=== PATIENT | female | born 2000 | race Caucasian/White ===

== ENCOUNTER 2022-10-20 10:24 | Emergency (ER) | payer OTHER, SELFPAY ==
[2022-10-20] VITALS (8 sets, daily range): BP systolic 125–141; BP diastolic 65–81; PULSE 89–100; RESP 13–24; TEMP 36.2; O2SAT 98–100; BMI 35.5
--- NOTE | 2022-10-20 10:42 | DI.CT.S_ITS ---
PROCEDURE: CT ANGIO CHEST PE PROTOCOL INDICATIONS: Chest pain/tachycardia TECHNIQUE: After the administration of intravenous contrast, 2 mm thick sections acquired from the pulmonary apices to the posterior costophrenic angles. 3-dimensional maximum intensity projection (MIP) coronal and sagittal reformats were then acquired through the thorax. For radiation dose reduction, the following was used: automated exposure control, adjustment of mA and/or kV according to patient size. COMPARISON: [facility], CT, CT ANGIO CHEST PE, 12/29/2018, 15:16. FINDINGS: Image quality: Excellent. Pulmonary arteries: Pulmonary arteries are normal in size, and demonstrate no intraluminal filling defects to suggest central pulmonary embolism. Lungs and pleura: Lungs are clear. No pleural effusions or pneumothorax. Central and peripheral airways are patent. Mediastinum: Heart size is normal, without pericardial effusion. No mediastinal or hilar adenopathy. Thoracic aorta is normal in caliber and enhancement. Esophagus is normal in caliber, without hiatal hernia. Bones and chest wall: No suspicious bony lesions. Ribs and thoracic spine appear intact throughout. Thyroid gland is within normal limits. No axillary or supraclavicular adenopathy. Abdomen: Visualized upper abdominal solid organs appear normal in the early arterial phase of enhancement. IMPRESSION: 1. No evidence of pulmonary emboli. No thoracic aortic aneurysm or gross dissection. 2. Bilateral lungs are clear. 3. No evidence of mediastinal or hilar lymphadenopathy. Dictated by: Hong Montero M.D. on 10/20/2022 at 11:38 Approved by: Hong Montero M.D. on 10/20/2022 at 11:40
--- NOTE | 2022-10-20 10:44 | DI.US.S_ITS ---
PROCEDURE: US PERIPH VENOUS LOW EXTREM RT INDICATIONS: CALF PAIN AND SWELLING TECHNIQUE: Real-time imaging, as well as color and pulse Doppler interrogation, were performed of the lower extremity deep veins from the inguinal ligament to the popliteal fossa. COMPARISON: None. FINDINGS: The common femoral, femoral and popliteal veins are normally compressible, and free of intraluminal thrombus. Color and pulse Doppler demonstrate normal phasic intraluminal flow. There is normal augmentation response to distal compression maneuver. IMPRESSION: No evidence of DVT in visualized right lower extremity veins. Dictated by: Hong Montero M.D. on 10/20/2022 at 11:37 Approved by: Hong Montero M.D. on 10/20/2022 at 11:38
--- NOTE | 2022-10-20 10:44 | ED_ITS ---
HPI - Chest Pain General Chief Complaint: Chest Pain Stated Complaint: chest pain Time Seen by Provider: 10/20/22 10:35 Source: patient Mode of arrival: Ambulatory Limitations: no limitations History of Present Illness HPI narrative: Patient here with a friend. Sent here from the local walk-in clinic for evaluation of chest pain. Patient states has had substernal chest discomfort since last Wednesday. Has had right arm discomfort as well. No dyspnea or palpitations. Has had off and on right calf discomfort. Walk-in clinic states right calf is slightly bigger than the left. Patient denies any history of he art attack strokes or diabetes or blood clots in legs or lungs. She did travel to [facility] last months. She is on control implant. She does have a sister that has had a stroke and blood clot in the lungs. Patient in no distress. Related Data Allergies Allergy/AdvReac Type Severity Reaction Status Date / Time azithromycin Allergy Verified 10/20/22 10:29 Review of Systems Review of Systems Narrative: GENERAL: negative chills, fatigue, malaise, fever, sweats. HEENT: negative sinus pain, ear pain, sore throat RESPIRATORY: negative dyspnea, cough CARDIOVASCULAR: Positive chest pain, negative palpitations GASTROINTESTINAL: negative nausea, vomiting, abdominal pain : negative dysuria, frequency, hematuria MUSCULOSKELETAL: negative muscle or bony pain, positive calf pain SKIN: negative rash, skin lesions NEUROLOGIC: negative weakness, numbness ROS Unobtainable: All systems reviewed & are unremarkable except as noted in HPI and below Patient History Social History Smoking Status: Unknown if ever smoked Smoking Status: Unknown if ever smoked alcohol intake frequency: holidays/special occasions only Substance Use Type: does not use Exam Narrative Exam Narrative: GENERAL: in no distress, not toxic not dyspneic HEAD: Normocephalic. EYES: Pupils equal round ENT: Mucous membranes moist. Symmetric bilateral pharynx. No erythema no edema no exudates no midline shift of the uvula. No uvula swelling. No trismus no malocclusion no drooling no tongue elevation NECK: Trachea midline. CARDIOVASCULAR: Regular rate and rhythm without murmurs RESPIRATORY: Clear to auscultation. Breath sounds equal bilaterally. No wheezes, rales, or rhonchi. GASTROINTESTINAL: Abdomen soft, non-tender EXTREMITIES: No gross deformities. Examination bilateral lower extremities. Calves are nontender. They are grossly symmetric. Negative Homans test negative Lemon test. Strong bilateral pedal pulses with brisk cap refills bilaterally. Feet are warm soft and pink. No palpable cords on the right or left calves. NEURO: AOx4. SKIN: Warm and dry PSYCH: Not anxious, is cooperative Initial Vital Signs Initial Vital Signs: Vital Signs Temperature 97.2 F L 10/20/22 10:25 Pulse Rate 100 H 10/20/22 10:25 Respiratory Rate 15 10/20/22 10:25 Blood Pressure 136/79 10/20/22 10:25 Pulse Oximetry 98 10/20/22 10:25 Oxygen Delivery Method Room Air 10/20/22 10:25 Scores HEART Score Heart Score history: Slightly Suspicious Heart Score EKG: Normal Heart Score Age: < 45 years old Heart Score risk factors: No known risk factors Heart Score troponin: < or = to normal limit Heart Score Total: 0 Course Orders Ordered: Discontinued Medications Sodium Chloride (Normal Saline 0.9%) 500 mls @ 1,000 mls/hr IV BOLUS ONE Stop: 10/20/22 11:12 Last Infusion: 10/20/22 11:52 Dose: 0 mls/hr Documented By: Admin: 10/20/22 10:48 Dose: 1,000 mls/hr Documented By: EDEN Ketorolac Tromethamine (Ketorolac 30 Mg/Ml Vial) 15 mg IV NOW ONE Stop: 10/20/22 12:44 Last Admin: 10/20/22 12:51 Dose: 15 mg Documented By: JAYLAN Vital Signs Vital signs: Vital Signs - 8 hr 10/20/22 10:25 10/20/22 10:33 10/20/22 10:35 Temperature 97.2 F L Pulse Rate 100 H 95 H Respiratory Rate 15 Blood Pressure 136/79 125/81 Pulse Oximetry 98 Oxygen Delivery Method Room Air 10/20/22 10:35 10/20/22 11:00 10/20/22 11:55 Temperature Pulse Rate 98 H 94 H 94 H Respiratory Rate 13 24 14 Blood Pressure Pulse Oximetry 100 99 Oxygen Delivery Method 10/20/22 11:56 10/20/22 11:56 10/20/22 12:00 Temperature Pulse Rate 90 Respiratory Rate 19 Blood Pressure 141/72 H 126/65 Pulse Oximetry 100 Oxygen Delivery Method 10/20/22 12:00 Temperature Pulse Rate 89 Respiratory Rate 21 Blood Pressure Pulse Oximetry 100 Oxygen Delivery Method Room Air MDM - Chest Pain Lab Data 10/20/22 10:40 10/20/22 10:40 Labs: Lab Results 10/20/22 10/20/22 10/20/22 Range/Units 10:40 10:40 10:40 WBC 13.3 H (4.5-11.0) X10^3/uL RBC 4.59 (4.0-5.2) X10^6/uL Hgb 13.3 (12.0-16.0) g/dL Hct 39.3 (36-46) % MCV 85.7 (80-100) fL MCH 29.1 (26-34) PG MCHC 33.9 (30-36) % RDW 13.6 (11.6-14.8) % Plt Count 193 (150-400) X10^3/uL Neut % (Auto) 80.3 H (50-75) % Lymph % (Auto) 13.8 L (25-40) % Hoke % (Auto) 4.9 (3-14) % Eos % (Auto) 0.7 L (2-4) % Baso % (Auto) 0.3 (0-2) % Neut # (Auto) 21513 H (5831-8350) /uL Lymph # (Auto) 1800 (6935-6694) /uL Hoke # (Auto) 700 (0-900) /uL Eos # (Auto) 100 (0-450) /uL Baso # (Auto) 0 (0-100) /uL PT 13.6 H (10.1-12.7) SECONDS INR 1.2 (0.9-1.3) APTT 31 (26-36) SECONDS Sodium 136 L (137-145) mmol/L Potassium 3.9 (3.4-5.1) mmol/L Chloride 104 (98-107) mmol/L Carbon Dioxide 24 (22-32) mmol/L BUN 8 (7-17) mg/dL Creatinine 0.54 (0.52-1.04) mg/dL Estimated GFR > 60 (>60) mL/min BUN/Creatinine Ratio 14.8 (6-22) Glucose 93 (70-100) mg/dL Calcium 8.8 (8.4-10.2) mg/dL Magnesium 2.0 (1.6-2.3) mg/dL Total Bilirubin 1.1 (0.2-1.3) mg/dL AST 22 (14-36) IU/L ALT 28 (<35) IU/L Alkaline Phosphatase 100 (38-126) U/L Total Creatine Kinase 70 (30-135) U/L CK-MB (CK-2) TNP CK-MB (CK-2) Rel Index TNP Troponin I < 0.012 (0.01-0.034) ng/mL Total Protein 7.5 (6.3-8.2) g/dL Albumin 4.3 (3.5-5.0) g/dL Globulin 3.2 (1.7-4.1) g/dL Albumin/Globulin Ratio 1.3 (1.0-2.8) Lipase 58 (23-300) U/L Serum , Qual (Negative) Chlamy pneumoniae PCR (Not Detect) Adenovirus (PCR) (Not Detect) B. pertussis DNA (PCR) (Not Detecte) B.parapertussis DNA PCR (Not Detecte) Coronavirus OC43 (PCR) (Not Detect) Coronavirus HKU1 (PCR) (Not Detect) Coronavirus 229E (PCR) (Not Detect) SARS-CoV-2 (PCR) (Not Detecte) Coronavirus NL63 (PCR) (Not Detect) Human Metapneumovir PCR (Not Detect) Influenza Type A (PCR) (Not Detect) Influenza Type B (PCR) (Not Detect) M. pneumoniae (PCR) (Not Detect) Parainfluenza 1 (PCR) (Not Detect) Parainfluenza 2 (PCR) (Not Detect) Parainfluenza 3 (PCR) (Not Detect) Parainfluenza 4 (PCR) (Not Detect) RSV (PCR) (Not Detect) Entero/Rhino (PCR) (Not Detect) Group A Strep (PCR) (Negative) 10/20/22 10/20/22 10/20/22 Range/Units 10:40 12:14 12:46 WBC (4.5-11.0) X10^3/uL RBC (4.0-5.2) X10^6/uL Hgb (12.0-16.0) g/dL Hct (36-46) % MCV (80-100) fL MCH (26-34) PG MCHC (30-36) % RDW (11.6-14.8) % Plt Count (150-400) X10^3/uL Neut % (Auto) (50-75) % Lymph % (Auto) (25-40) % Hoke % (Auto) (3-14) % Eos % (Auto) (2-4) % Baso % (Auto) (0-2) % Neut # (Auto) (2420-6858) /uL Lymph # (Auto) (3821-6119) /uL Hoke # (Auto) (0-900) /uL Eos # (Auto) (0-450) /uL Baso # (Auto) (0-100) /uL PT (10.1-12.7) SECONDS INR (0.9-1.3) APTT (26-36) SECONDS Sodium (137-145) mmol/L Potassium (3.4-5.1) mmol/L Chloride (98-107) mmol/L Carbon Dioxide (22-32) mmol/L BUN (7-17) mg/dL Creatinine (0.52-1.04) mg/dL Estimated GFR (>60) mL/min BUN/Creatinine Ratio (6-22) Glucose (70-100) mg/dL Calcium (8.4-10.2) mg/dL Magnesium (1.6-2.3) mg/dL Total Bilirubin (0.2-1.3) mg/dL AST (14-36) IU/L ALT (<35) IU/L Alkaline Phosphatase (38-126) U/L Total Creatine Kinase (30-135) U/L CK-MB (CK-2) CK-MB (CK-2) Rel Index Troponin I (0.01-0.034) ng/mL Total Protein (6.3-8.2) g/dL Albumin (3.5-5.0) g/dL Globulin (1.7-4.1) g/dL Albumin/Globulin Ratio (1.0-2.8) Lipase (23-300) U/L Serum , Qual Negative (Negative) Chlamy pneumoniae PCR Not detected (Not Detect) Adenovirus (PCR) Not detected (Not Detect) B. pertussis DNA (PCR) Not detected (Not Detecte) B.parapertussis DNA PCR Not detected (Not Detecte) Coronavirus OC43 (PCR) Not detected (Not Detect) Coronavirus HKU1 (PCR) Not detected (Not Detect) Coronavirus 229E (PCR) Not detected (Not Detect) SARS-CoV-2 (PCR) Not detected (Not Detecte) Coronavirus NL63 (PCR) Not detected (Not Detect) Human Metapneumovir PCR Not detected (Not Detect) Influenza Type A (PCR) Not detected (Not Detect) Influenza Type B (PCR) Not detected (Not Detect) M. pneumoniae (PCR) Not detected (Not Detect) Parainfluenza 1 (PCR) Not detected (Not Detect) Parainfluenza 2 (PCR) Not detected (Not Detect) Parainfluenza 3 (PCR) Not detected (Not Detect) Parainfluenza 4 (PCR) Not detected (Not Detect) RSV (PCR) Not detected (Not Detect) Entero/Rhino (PCR) Detected H (Not Detect) Group A Strep (PCR) Negative (Negative) Point of Care Testing Test Results Negative Urine Dip Bedside Urine Glucose Negative Bedside Urine Bilirubin - Negative Bedside Urine Ketone - Negative Urine Specific [place] 1.010 Bedside Urine Occult Blood - Negative Bedside Urine pH 7.5 Bedside Urine Protein - Negative Bedside Urine Urobilinogen - Negative Bedside Urine Nitrite - Negative Bedside Urine Leukocytes - Negative Esterase Imaging Data CT scan - chest: Radiologist's Impression: [address] [address] [address] Scan Report Signed Patient: Catherine Valenzuela MR#: [id number] : 2000 Acct:[id number] Age/Sex: 22 / F Date of Service: 10/20/22 Loc: ED Accession Number: [id number] ?? Procedure: CT angio chest PE protocol Ordering Provider: Praneeth Zamorano MD PROCEDURE:? CT ANGIO CHEST PE PROTOCOL ? INDICATIONS:? Chest pain/tachycardia ? TECHNIQUE:? After the administration of intravenous contrast, 2 mm thick sections acquired from the pulmonary apices to the posterior costophrenic angles.? 3-dimensional maximum intensity projection (MIP) coronal and sagittal reformats were then acquired through the thorax.? For radiation dose reduction, the following was used:? automated exposure control, adjustment of mA and/or kV according to patient size.? ? COMPARISON:? [facility], CT, CT ANGIO CHEST PE, 12/29/2018, 15:16. ? FINDINGS:? Image quality:? Excellent.? ? Pulmonary arteries:? Pulmonary arteries are normal in size, and demonstrate no intraluminal filling defects to suggest central pulmonary embolism.? ? Lungs and pleura:? Lungs are clear.? No pleural effusions or pneumothorax.? Central and peripheral airways are patent.? ? Mediastinum:? Heart size is normal, without pericardial effusion.? No mediastinal or hilar adenopathy.? Thoracic aorta is normal in caliber and enhancement.? Esophagus is normal in caliber, without hiatal hernia.? ? Bones and chest wall:? No suspicious bony lesions.? Ribs and thoracic spine appear intact throughout.? Thyroid gland is within normal limits.? No axillary or supracl avicular adenopathy.? ? Abdomen:? Visualized upper abdominal solid organs appear normal in the early arterial phase of enhancement.? ? IMPRESSION:? ? 1. No evidence of pulmonary emboli.? No thoracic aortic aneurysm or gross dissection. ? 2. Bilateral lungs are clear. ? 3. No evidence of mediastinal or hilar lymphadenopathy.? ? ? Dictated by: Hong Montero M.D. on 10/20/2022 at 11:38 ? ? Approved by: Hong Montero M.D. on 10/20/2022 at 11:40 ? US - DVT: Radiologist's Impression: [place] [address] Ultrasound Report Signed Patient: Catherine Valenzuela MR#: [id number] : 2000 Acct:[id number] Age/Sex: 22 / F Date of Service: 10/20/22 Loc: ED Accession Number: [id number] ?? Procedure: US periph venous low extrem rt Ordering Provider: Praneeth Zamorano MD PROCEDURE:? US PERIPH VENOUS LOW EXTREM RT ? INDICATIONS:? CALF PAIN AND SWELLING ? TECHNIQUE:? Real-time imaging, as well as color and pulse Doppler interrogation, were performed of the lower extremity deep veins from the inguinal ligament to the popliteal fossa.? ? COMPARISON:? None. ? FINDINGS:? The common femoral, femoral and popliteal veins are normally compressible, and free of intraluminal thrombus.? Color and pulse Doppler demonstrate normal phasic intraluminal flow.? There is normal augmentation response to distal compression maneuver. ? ? IMPRESSION:? No evidence of DVT in visualized right lower extremity veins. ? ? Dictated by: Hong Montero M.D. on 10/20/2022 at 11:37 ? ? Approved by: Hong Montero M.D. on 10/20/2022 at 11:38 ? [facility] Narrative Medical decision making narrative: Patient here with a friend. Sent here from the local walk-in clinic for evaluation of chest pain. Patient states has had substernal chest discomfort since last Wednesday. Has had right arm discomfort as well. No dyspnea or palpitations. Has had off and on right calf discomfort. Walk-in clinic states right calf is slightly bigger than the left. Patient denies any history of h eart attack strokes or diabetes or blood clots in legs or lungs. She did travel to [facility] last months. She is on control implant. She does have a sister that has had a stroke and blood clot in the lungs. Patient in no distress. After history and exam CBC CMP troponin CT chest PE protocol ultrasound right leg normal saline ordered, test ordered [facility] CC: Chest pain Complicating co-morbidities: Family history of blood clots in lungs and stroke, patient on hormone implant for control Data collected from: Patient Medical records reviewed: No previous visits here for this complaint Differential considered: Includes but not limited to pulmonary embolism pleurisy costochondritis STEMI non-STEMI unstable angina stable angina Exam documented above, pertinent findings include: Nontender chest. Lab Test results independently reviewed as above. Pertinent findings: WBC 13.3 INR 1.2 sodium 132 potassium 3.9 AST 22 ALT 28 troponin less than 0.012, strep screen negative Independently reviewed EKG normal sinus rhythm normal EKG rate [address] elevati on or depression Imaging studies independently reviewed: Ultrasound right leg no DVT CT chest no PE Treatments: Normal saline Toradol Re-evaluations: 12:45 p.m.. Results reviewed with patient and friend. At this time she does now say that her chest discomfort substernally is worse with deep breath. This is reassuring as I have reviewed white cell count elevation and her sore throat this may be viral pleurisy. I did review with her pleurisy symptoms. She does agree with Toradol. She does agree with viral swab but does not want to wait for results. Return precautions reviewed with her. Nontoxic at discharge. She desires discharge home Discussion: Appropriate for discharge home. Exam and laboratory studies and imaging are reassuring. White cell count likely infectious source and likely viral. No antibiotics indicated this time. Strep screen was negative but culture is pending. Return precautions reviewed with her. She desires discharge home. Diagnosis: Pleurisy Discharge Plan Departure Patient Disposition: Home Clinical Impression: Pleurisy Instructions: DI for Pleurisy Activity Restrictions/Additional Instructions: Please see family doctor within week for re-evaluation. Call provided primary care referral phone number to establish family doctor. Call [phone] May continue ibuprofen for chest discomfort. At the time laboratory studies and imaging and EKG are reassuring. Viral swab results are pending and you may call back for results. Keep well hydrated. Return if worse if any questions or concerns. Your symptoms today are likely due to pleurisy. Literature about pleurisy has been provided for you. Referrals: Miscellaneous,MD Lawanda [Primary Care Provider] - Stand Alone Forms: Patient Portal/API, Work Release Note
[2022-10-20] MEDS: SODIUM CHLORIDE 0.9% 500 ML 1000 ML IV (10:48)
[2022-10-20 10:52] LABS: Add Manual Diff / Slide Review NO; Basophils Absolute Auto 0 /uL (0-100); Basophils Percent Auto 0.3 % (0-2); Eosinophils Absolute Auto 100 /uL (0-450); Eosinophils Percent Auto 0.7 % (2-4); Hematocrit 39.3 % (36-46); Hemoglobin 13.3 g/dL (12.0-16.0); Lymphocytes Absolute Auto 1800 /uL (1100-4500); Lymphocytes Percent Auto 13.8 % (25-40); Mean Corpuscular HGB Conc 33.9 % (30-36); Mean Corpuscular Hemoglobin 29.1 PG (26-34); Mean Corpuscular Volume 85.7 fL (80-100); Monocytes Absolute Auto 700 /uL (0-900); Monocytes Percent Auto 4.9 % (3-14); Neutrophils Absolute Auto 10700 /uL (1500-7000); Neutrophils Percent Auto 80.3 % (50-75); Platelet Count 193 X10^3/uL (150-400); Red Blood Cell Count 4.59 X10^6/uL (4.0-5.2); Red Cell Distribution Width 13.6 % (11.6-14.8); White Blood Cell Count 13.3 X10^3/uL (4.5-11.0)
[2022-10-20 11:00] LABS: INR 1.2 (0.9-1.3); Prothrombin Time 13.6 SECONDS (10.1-12.7)
[2022-10-20 11:02] LABS: PTT Partial Thromboplastin Tim 31 SECONDS (26-36)
[2022-10-20 11:04] LABS: Alanine Aminotransferase 28 IU/L (<35); Albumin 4.3 g/dL (3.5-5.0); Albumin Globulin Ratio 1.3 (1.0-2.8); Alkaline Phosphatase 100 U/L (38-126); Aspartate Aminotransferase 22 IU/L (14-36); BUN Creatinine Ratio 14.8 (6-22); Bilirubin Total 1.1 mg/dL (0.2-1.3); Blood Urea Nitrogen 8 mg/dL (7-17); Calcium 8.8 mg/dL (8.4-10.2); Carbon Dioxide 24 mmol/L (22-32); Chloride 104 mmol/L (98-107); Creatine Kinase 70 U/L (30-135); Estimated Glomerular Filt Rate > 60 mL/min (>60); Globulin 3.2 g/dL (1.7-4.1); Glucose 93 mg/dL (70-100); HEMOLYSIS < 15 (0-50); Lipase 58 U/L (23-300); Potassium 3.9 mmol/L (3.4-5.1); Sodium 136 mmol/L (137-145); Total Protein 7.5 g/dL (6.3-8.2)
[2022-10-20 11:06] LABS: Pregnancy Test Serum,Qual Negative (Negative)
[2022-10-20 11:15] LABS: Troponin I < 0.012 ng/mL (0.01-0.034)
[2022-10-20 12:36] LABS: Strep Grp A by PCR Rapid Negative (Negative)
[2022-10-20] MEDS: KETOROLAC 30 MG/ML VIAL 15 MG IV (12:51)
[2022-10-20 14:00] LABS: Adenovirus Not Detected (Not Detect); B. parapertussis Not Detected (Not Detecte); Bordetella pertussis Not Detected (Not Detecte); Chlamydophila pneumoniae Not Detected (Not Detect); Coronavirus 229E Not Detected (Not Detect); Coronavirus HKU1 Not Detected (Not Detect); Coronavirus NL 63 Not Detected (Not Detect); Coronavirus OC43 Not Detected (Not Detect); Human Metapneumovirus Not Detected (Not Detect); Human Rhinovirus/Enterovirus Detected (Not Detect); Influenza A Not Detected (Not Detect); Influenza B Not Detected (Not Detect); Mycoplasma pneumoniae Not Detected (Not Detect); Parainfluenza Virus 1 Not Detected (Not Detect); Parainfluenza Virus 2 Not Detected (Not Detect); Parainfluenza Virus 3 Not Detected (Not Detect); Parainfluenza Virus 4 Not Detected (Not Detect); Respiratory Syncytial Virus Not Detected (Not Detect); SARS- CoV-2 Not Detected (Not Detecte)
== END 2022-10-20 13:15 | disposition home or self-care (01) ==
PROVIDERS: Emergency Provider Emergency Medicine
DX: R09.1 Pleurisy (principal); M79.661 Pain in right lower leg
CPT/HCPCS: 36415; 71275; 80053; 81003; 81025; 82550; 83690; 83735; 84484; 84703; 85025; 85610; 85730; 87633; 87651; 93005; 93010; 93971; 96374; 99284; J1885; Q9967